=== PATIENT | female | born 1985 | race African-American/Black ===

== ENCOUNTER 2018-06-02 09:38 | Emergency (ER) | payer OTHER ==
[~2018-06-02] VITALS: Ht 154.9 cm; Wt 68.9 kg
--- NOTE | 2018-06-02 09:59 | PHYS DOC ---
Past History Past Medical History: No Pertinent History Past Surgical History: No Surgical History Alcohol Use: None Drug Use: None Adult General Chief Complaint Chief Complaint: LACERATION/AVULSION HPI HPI 33 year old female presents with right hand laceration. The patient was opening a can of green beans last night when she slipped and lacerated the thenar eminence of her right hand. It was bleeding, but the patient was able to get it controlled. She also rinsed the wound off with water as well as hydrogen peroxide. [place] she come to the ER for consideration of sutures and for tetanus booster. Denies any other injuries. She denies fever or chills. Review of Systems Review of Systems Constitutional: Denies fever or chills [] Eyes: Denies change in visual acuity, redness, or eye pain [] HENT: Denies nasal congestion or sore throat [] Respiratory: Denies cough or shortness of breath [] Cardiovascular: No additional information not addressed in HPI [] GI: Denies abdominal pain, nausea, vomiting, bloody stools or diarrhea [] : Denies dysuria or hematuria [] Musculoskeletal: Denies back pain or joint pain [] Integument: Right hand laceration[] Neurologic: Denies headache, focal weakness or sensory changes [] Endocrine: Denies polyuria or polydipsia [] All other systems were reviewed and found to be within normal limits, except as documented in this note. Current Medications Current Medications Current Medications Medications (Trade) Dose Ordered Sig/Js Start Time Stop Time Status Last Admin Dose Admin Diphtheria/ Tetanus/Acell Pertussis (Boostrix) 0.5 ml ONCE ONCE 06/02/18 10:06/02/18 10:01 UNV Lidocaine HCl 20 ml 1X ONCE 06/02/18 10:00 06/02/18 10:01 UNV Allergies Allergies Allergies Coded Allergies Type Severity Reaction Last Updated Verified No Known Drug Allergies 06/02/18 No Physical Exam Physical Exam Constitutional: Well developed, well nourished, no acute distress, non-toxic appearance. [] HENT: Normocephalic, atraumatic, bilateral external ears normal, oropharynx moist, no oral exudates, nose normal. [] Eyes: PERRLA, EOMI, conjunctiva normal, no discharge. [] Neck: Normal range of motion, no tenderness, supple, no stridor. [] Cardiovascular:Heart rate regular rhythm, no murmur [] Lungs & Thorax: Bilateral breath sounds clear to auscultation [] Abdomen: Bowel sounds normal, soft, no tenderness, no masses, no pulsatile masses. [] Skin: 5 cm linear laceration of the right thenar eminence[] Back: No tenderness, no CVA tenderness. [] Extremities: No tenderness, no cyanosis, no clubbing, ROM intact, no edema. [] Neurologic: Alert and oriented X 3, normal motor function, normal sensory function, no focal deficits noted. [] Psychologic: Affect normal, judgement normal, mood normal. [] Current Patient Data Vital Signs Vital Signs Date Time Temp Pulse Resp B/P (MAP) Pulse Ox O2 Delivery O2 Flow Rate FiO2 06/02/18 09:53 97.9 66 22 100 Room Air EKG EKG [] Radiology/Procedures Radiology/Procedures [] Course & Med Decision Making Course & Med Decision Making Pertinent Labs and Imaging studies reviewed. (See chart for details) Patient's tetanus was not up-to-date. She was given one in the emergency room. Her laceration was repaired with sutures. See repair note below for more details. Patient had no complications. She will use ibuprofen and Tylenol for pain at home. She will keep the area clean and dry for the next 2 days. After that she will keep a clean dressing over the wound. 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 She is stable for discharge at this time. [] Dragon Disclaimer Dragon Disclaimer This electronic medical record was generated, in whole or in part, using a voice recognition dictation system. Laceration Repair Lac Repair Indication: [5 cm linear laceration of the right thenar eminence. I obtained verbal consent from the patient for laceration repair with sutures. The proper site and procedure was identified.] Procedure: The patient was placed in the appropriate position and 2% lidocaine around the laceration was used for anesthesia.. The area was then cleansed with Hibiclens/normal saline. No foreign bodies were found. The laceration was closed with 4-0 Ethilon suture. There were 6 interrupted sutures total. The wound area was then dressed with antibiotics ointment and a clean gauze wrap. Total repaired wound length: 5 cm. Other Items: None The patient tolerated the procedure well. Complications: none. Departure Departure: Referrals: PCP,CESILIA (PCP) NNEKA LILLY DO Jun 02, 2018 09:59
[2018-06-02] MEDS ORDERED: LIDOCAINE 1% Multi-Dose 20 ML VIAL. IJ ONE (10:30)
[2018-06-02] MEDS ORDERED: DIPHTH,PERTUSS(ACELL),TET TOX 0.5 ML DISP.SYRIN. VAX IM ONE (10:30)
[2018-06-02 11:01] VITALS: BP 126/82
== END 2018-06-02 11:02 | disposition home or self-care (01) ==
LOC: ER 09:38
DX: S61.411A Laceration without foreign body of right hand, initial encounter (principal); W26.8XXA Contact with other sharp object(s), not elsewhere classified, initial encounter; Y93.89 Activity, other specified; Y92.89 Other specified places as the place of occurrence of the external cause; Y99.8 Other external cause status
CPT/HCPCS: 12002; 90471; 90715; 99283-25

== ENCOUNTER 2018-06-09 14:24 | Emergency (ER) | payer OTHER ==
[~2018-06-09] VITALS: Ht 160 cm; Wt 68.0 kg
[2018-06-09 14:25] VITALS: BP 125/75
--- NOTE | 2018-06-09 14:41 | PHYS DOC ---
Past History Past Medical History: No Pertinent History Past Surgical History: No Surgical History Alcohol Use: None Drug Use: None Adult General Chief Complaint Chief Complaint: SUTURE/STAPLE REMOVAL HPI HPI Patient is a pleasant 33-year-old female who presents to the emergency department for evaluation of a suture removal. She had sutures placed in her right thumb, and the femur evidence 1 week ago. The wound has been healing well she has no complaints. She has not had any warmth, erythema, or drainage. Review of Systems Review of Systems Constitutional: Denies fever or chills [] Neurologic: Denies focal weakness or sensory changes [] Allergies Allergies Allergies Coded Allergies Type Severity Reaction Last Updated Verified No Known Drug Allergies 06/02/18 No Physical Exam Physical Exam PHYSICAL EXAM: HEENT: Atruamatic NECK: Supple, normal ROM, non-tender. CARDIAC: Regular Rate and Rhythm LUNGS: Clear Bilaterally EXTREMITIES: There is a healing sutured laceration on the right thenar eminence , with no tenderness to palpation, warmth, or erythema. EKG EKG [] Radiology/Procedures Radiology/Procedures [] Course & Med Decision Making Course & Med Decision Making Nursing removed sutures, wound looks good. I discussed wound care with the patient and return precautions as needed. Dragon Disclaimer Dragon Disclaimer This electronic medical record was generated, in whole or in part, using a voice recognition dictation system. Departure Departure: Impression: Primary Impression: Visit for suture removal Disposition: 01 HOME, SELF-CARE Condition: STABLE Referrals: PCP,CESILIA (PCP) Patient Instructions: Suture Removal ELHAM PLATA MD Jun 09, 2018 14:41
== END 2018-06-09 14:45 | disposition home or self-care (01) ==
LOC: ER 14:24
DX: S61.011D Laceration without foreign body of right thumb without damage to nail, subsequent encounter (principal); X58.XXXD Exposure to other specified factors, subsequent encounter
CPT/HCPCS: 99282